=== PATIENT | male | born 1955 | race Caucasian/White ===

== ENCOUNTER 2021-08-12 14:29 | Emergency (ER) | payer BC ==
--- NOTE | 2021-08-12 15:18 | EDM.PDOC ---
ED HPI GENERAL MEDICAL PROBLEM - General Chief Complaint: General Stated Complaint: COVID POSITIVE - SOB, NAUSEA Time Seen by Provider: 08/12/21 15:13 Source of Information: Reports: Patient, RN Notes Reviewed History Limitations: Reports: No Limitations - History of Present Illness INITIAL COMMENTS - FREE TEXT/NARRATIVE: 66-year-old gentleman presents emergency department today complaint of shortness of breath body aches recently diagnosed with Covid on 08/08/2021 of this month he is requesting monoclonal antibody therapy - Related Data Allergies Allergy/AdvReac Type Severity Reaction Status Date / Time No Known Allergies Allergy Verified 08/12/21 14:47 Home Meds: Home Meds Gabapentin [Neurontin] 600 mg PO TID 08/12/21 [History] Hydrocodone/Acetaminophen [Hydrocodon-Acetaminophn 10-325] 1 tab PO Q4H PRN 08/12/21 [History] QUEtiapine [SEROquel] 200 mg PO BEDTIME 08/12/21 [History] Social & Family History - Tobacco Use Tobacco Use Status *Q: Light Tobacco User Years of Tobacco use: 25 Packs/Tins Daily: 0.7 - Recreational Drug Use Recreational Drug Use: No ED ROS GENERAL - Review of Systems Review Of Systems: See Below Constitutional: Reports: Fever, Chills, Weakness, Weight Gain Respiratory: Reports: Shortness of Breath, Cough Cardiovascular: Reports: Dyspnea on Exertion ED EXAM, GENERAL - Physical Exam Exam: See Below Exam Limited By: No Limitations General Appearance: Alert, WD/WN, No Apparent Distress Respiratory/Chest: No Respiratory Distress, Lungs Clear, Normal Breath Sounds, No Accessory Muscle Use, Chest Non-Tender Cardiovascular: Regular Rate, Rhythm, No Murmur Course - Vital Signs Last Recorded V/S: Last Vital Signs Temp 98.0 F 08/12/21 14:53 Pulse 95 08/12/21 14:53 Resp 20 08/12/21 14:53 BP 126/92 H 08/12/21 14:53 Pulse Ox 97 08/12/21 14:53 Departure - Departure Time of Disposition: 15:17 Disposition: Home, Self-Care 01 Condition: Fair Clinical Impression: COVID-19 - Discharge Information Instructions: 10 Things You Can Do to Manage Your COVID-19 Symptoms at Home - [facility] [facility] [place]) Referrals: Truman Alarcon MD [Primary Care Provider] - Additional Instructions: The outpatient surgery center will call you for an appointment time for your monoclonal antibody therapy, call return to the emergency department worsening of symptoms Sepsis Event Note (ED) - Evaluation Sepsis Screening Result: No Definite Risk - Focused Exam Vital Signs: Vital Signs Temp Pulse Resp BP Pulse Ox 08/12/21 14:53 98.0 F 95 20 126/92 H 97 - Assessment/Plan Plan: Assessment Acuity = acute Site and laterality = viral syndrome Etiology = COVID-19 Manifestations = dyspnea Location of injury = Home Lab values = none Plan Order for monoclonal antibody placed hopefully they can do that Saturday or Saturday of next week This note was dictated using [employer] voice recognition software please call with any questions on syntax or grammar.
== END 2021-08-12 15:31 | disposition home or self-care (01) ==
LOC: JP.ED 14:29
DX: U07.1 COVID-19 (principal); Z72.0 Tobacco use
CPT/HCPCS: 99284